=== PATIENT | male | born 1995 | race Two or more races ===

== ENCOUNTER 2022-04-08 05:54 | Emergency (ER) | payer MEDICAID, SELFPAY ==
--- NOTE | 2022-04-08 | ECG_ITS ---
Test Reason : bradycardia Blood Pressure : / mmHG Vent. Rate : 045 BPM Atrial Rate : 045 BPM P-R Int : 142 ms QRS Dur : 100 ms QT Int : 454 ms P-R-T Axes : 045 039 041 degrees QTc Int : 392 ms Sinus bradycardia Otherwise normal ECG When compared with ECG of 08-APR-2022 06:15, No significant change was found Referred By: Sarai Aguirre Electronically Signed By:EUGENIA SCHUMACHER MD
--- NOTE | ~2022-04-08 | XR_ITS ---
EXAMINATION: XR CHEST CLINICAL INFORMATION: Chest pain. COMPARISON: None TECHNIQUE: Frontal view of the chest was obtained. FINDINGS: No significant abnormality is noted involving the heart, lungs, mediastinum, bony thorax or soft tissues. XR/XR chest 1V IMPRESSION: No acute cardiopulmonary process.
--- NOTE | ~2022-04-08 | CT_ITS ---
EXAMINATION: CT ANGIOGRAM OF THE CHEST WITH AND WITHOUT CONTRAST (CT PULMONARY ANGIOGRAM FOR PE) CLINICAL INFORMATION: Reason for Exam ?pe COMPARISON: None TECHNIQUE: Prior to contrast administration, noncontrast localization images were obtained. Subsequently, multidetector volumetric imaging was performed from the thoracic inlet to below the diaphragms following the administration of 80 mL Omnipaque 350 intravenous contrast. No contrast reaction reported Sagittal, coronal, and MIP oblique sagittal reformatted images were obtained on the CT workstation, uploaded to PACS, and reviewed. This CT examination was performed using dose optimization techniques as appropriate, variously including the following: *Automated exposure control *Adjustment of mA and/or kV according to patient size (this includes techniques or standardized protocols for targeted exams where dose is matched to indication/reason for exam; i.e. extremities or head) *Use of iterative reconstruction technique Total exam dose-length product 509 mGy-cm FINDINGS: QUALITY OF STUDY/CONTRAST BOLUS: Satisfactory. PULMONARY ARTERIES: No central or segmental pulmonary emboli. THORACIC AORTA: No aneurysm or dissection. LUNG: No focal consolidation, nodules or masses. PLEURA: No pleural effusion or pneumothorax. MEDIASTINUM: Normal heart size. No pericardial effusion. No hilar or mediastinal lymphadenopathy. No evidence of septal bowing or right heart strain. No coronary artery calcification observed. CHEST WALL/AXILLA: No axillary or internal mammary lymphadenopathy. OSSEOUS STRUCTURES: No acute or suspicious osseous abnormality. UPPER ABDOMEN: Unremarkable. No reflux of contrast into the hepatic veins to suggest elevated right heart pressures. CT/CT angio chest PE protocol IMPRESSION: 1. Unremarkable exam. No evidence for acute PE VTE: negative
--- NOTE | ~2022-04-08 | CT_ITS ---
EXAMINATION: CT ABDOMEN AND PELVIS WITH CONTRAST CLINICAL INFORMATION: Right upper quadrant pain COMPARISON: None TECHNIQUE: Multidetector volumetric images were obtained from the superior aspect of the liver through the pubic symphysis following administration 85 mL of Omnipaque 350 intravenous contrast. Sagittal and coronal reformatted images were obtained on the technologist's workstation. Oral contrast: No This CT examination was performed using dose optimization techniques as appropriate, variously including the following: *Automated exposure control *Adjustment of mA and/or kV according to patient size (this includes techniques or standardized protocols for targeted exams where dose is matched to indication/reason for exam; i.e. extremities or head) *Use of iterative reconstruction technique DLP: 1607 mGy-cm FINDINGS: LUNG BASES: Minimal atelectatic changes seen left lung base. Heart size is normal. LIVER, GALLBLADDER, AND BILIARY TREE: The liver is normal in size, shape, and attenuation. No focal hepatic lesion or biliary ductal dilatation is present. The gallbladder is unremarkable with no evidence of radiopaque gallstones, gallbladder wall thickening, or obvious pericholecystic inflammatory changes. PANCREAS: And air or free SPLEEN: Unremarkable. ADRENAL GLANDS: Unremarkable. KIDNEYS AND URETERS: The kidneys are normal in size, shape, and attenuation. No hydronephrosis, hydroureter, or calculi seen. No perinephric stranding. BLADDER: Unremarkable. GASTROINTESTINAL TRACT: There is scattered stool, diverticuli and gas seen in the colon without significant distention. The small bowel loops are normal caliber. Appendix is normal caliber. There is scattered mesenteric lymph nodes. ABDOMINAL WALL: No significant hernia is appreciated. LYMPH NODES: Normal. VASCULAR: Unremarkable. PELVIC VISCERA: The prostate gland is normal size. No free fluid or free air seen. OSSEOUS STRUCTURES: No aggressive lytic or sclerotic process CT/CT abdomen pelvis w IV con IMPRESSION: No acute intra-abdominal process seen. Scattered colonic diverticulosis without diverticulitis. Mild constipation. Fleischner guidelines were followed.
[2022-04-08 06:02] VITALS: BP 124/70; BP 137/79; PULSE 68; PULSE 70; RESP 16; TEMP 36.7; O2SAT 99; BMI 36.9
--- NOTE | 2022-04-08 07:34 | ECG_ITS ---
Test Reason : ABD PAIN Blood Pressure : / mmHG Vent. Rate : 056 BPM Atrial Rate : 056 BPM P-R Int : 124 ms QRS Dur : 092 ms QT Int : 416 ms P-R-T Axes : 019 028 018 degrees QTc Int : 401 ms Sinus bradycardia Otherwise normal ECG When compared with ECG of 28-SEP-2007 09:15, Heart rate has decreased Referred By: Sarai Aguirre Electronically Signed By:EUGENIA SCHUMACHER MD
--- NOTE | 2022-04-08 07:58 | ED.ABDPAIN ---
HPI - Abdominal Pain General Chief Complaint: Abdominal Pain Stated Complaint: right lower abd pain Time Seen by Provider: 04/08/22 06:43 History of Present Illness HPI narrative: Patient is a 26-year-old male presents today with having right upper quadrant pain has been ongoing for years. Patient claims it started again last night. The pain is sharp. It is over the right upper quadrant. It is worse with deep breath. Patient is from home. No diaphoresis. No history of diabetes, hypertension, high cholesterol, smoking, [place]. No history of blood clots in the past. No family history of blood clot no long distance traveling. No leg swelling. Related Data Allergies Allergy/AdvReac Type Severity Reaction Status Date / Time amoxicillin [AMOXICILLIN] Allergy Mild RASH Unverified 02/10/20 16:13 Review of Systems Review of Systems Positive right upper quadrant lower abdomen/chest pain No nausea no vomiting No diaphoresis Yes all other systems are reviewed and are negative PMFSH Past Medical History Attestation statement: The following information was validated with the patient. Social History Social History Smoked in Last 30 Days: Yes Use of substances other than those prescribed or required for medical reasons: Yes Substance Use Type: Marijuana Advance Directives: No Physical Exam ED Vital Signs: Vital Signs - 24 hr 04/08/22 06:02 04/08/22 08:23 04/08/22 09:11 Temperature 98.1 F 97.6 F Pulse Rate 70 50 45 L Respiratory Rate 16 16 16 Blood Pressure 137/79 119/57 L 105/51 L Pulse Oximetry 99 100 Oxygen Delivery Method Room Air Room Air Room Air BMI result Body Mass Index 36.9 Appearance: Alert. Oriented X3. No acute distress. Eyes: Pupils equal, round and reactive to light. ENT: Pharynx normal. Neck: Normal inspection. Neck supple. No lymph nodes noted. No crepitus CVS: Normal heart rate and rhythm. Pulses normal. Normal S1 and S2 Respiratory: No respiratory distress. Breath sounds normal. No Wheezing. No rales Abdomen: Positive right upper quadrant pain. No rebound or guarding. No rigidity. No distention. good BS x4 Skin: Skin warm and dry. Normal skin color. Normal skin turgor. Extremities: No lower extremity edema. Neurovascular intact to all extremities. No Lacerations. No Rash Neuro: Oriented X 3. No motor deficit. No sensory deficit. Moving all extermities. No slurred speech Medications Administered Discontinued Medications Generic Name Dose Route Start Last Admin Trade Name Susan PRN Reason Stop Dose Admin Al Hydroxide/Mg Hydroxide 30 ml 04/08/22 07:57 04/08/22 09:15 Magnesium Hydrox/Alum Hydrox 30 Ml Oral.Susp PO 04/08/22 07:58 30 ml ONCE ONE Administration Belladonna Alkaloids/Phenobarbital 10 ml 04/08/22 07:57 04/08/22 09:15 Phenobarb/Hyoscy/Atropine/Scop 10 Ml Elixir PO 04/08/22 07:58 10 ml ONCE ONE Administration Sodium Chloride 1,000 mls @ 999 mls/hr 04/08/22 08:00 04/08/22 10:40 Ns IV 04/08/22 09:00 Infused .Q1H1M WINNIE Infusion Iohexol 100 ml 04/08/22 10:40 04/08/22 10:40 Iohexol 350 Mg/Ml 100 Ml Infus..Btl IV 04/08/22 10:41 100 ml ONCE ONE Administration Lidocaine HCl 15 ml 04/08/22 07:57 04/08/22 09:16 Lidocaine Hcl Viscous 2 % 15 Ml Solution MUCOUS MEM 04/08/22 07:58 15 ml ONCE ONE Administration MDM - Abdominal Pain MDM Narrative Medical decision making narrative: CTA of the chest was grossly negative for any acute evidence of pulmonary emboli. A CTA was ordered as patient had a slightly elevated D-dimer. CT of the abdomen pelvis was negative for obstruction, abscess, perforation. His LFTs are normal. His EKG showed a sinus pattern heart rate is 45 TX QRS QT within normal limits is no acute ST segment elevation given patient's age poly physiologic. No distress. Will discharge patient home. Differential Diagnosis Differential diagnosis: Likely abdominal pain Medical Records Attestation: I reviewed the patient's medical records. Lab Data Attestation: I reviewed the patient's lab results. Result diagrams: 04/08/22 09:01 04/08/22 09:01 Labs: Lab Results 04/08/22 04/08/22 04/08/22 Range/Units 09:01 09:01 09:01 WBC 10.2 (4.8-10.8) X10*3/uL RBC 4.87 (4.60-5.80) X10*6/uL Hgb 14.1 (14.0-18.0) g/dl Hct 43.0 (42.0-52.0) % MCV 88.3 (80.0-98.0) fL MCH 29.0 (27.0-33.0) pg MCHC 32.8 (31.0-36.0) g/dl RDW 13.0 (11.0-16.0) % Plt Count 299 (160-400) X10*3/uL MPV 9.5 (9.4-12.4) fL Immature Gran % (Auto) 0.3 (0.0-0.4) % Neut % (Auto) 54.3 (45-73) % Lymph % (Auto) 33.0 (20-40) % Atkinson % (Auto) 7.2 (2-11) % Eos % (Auto) 4.7 H (0-4) % Baso % (Auto) 0.5 (0-2) % Lymph # (Auto) 3.4 (1.2-4.9) X10*3/uL Atkinson # (Auto) 0.7 (0.1-1.2) X10*3/uL Eos # (Auto) 0.5 H (0.0-0.4) X10*3/uL Baso # (Auto) 0.1 (0.0-0.2) X10*3/uL Abs Immat Gran (auto) 0.03 (0.00-0.03) X10*3/uL Absolute Neuts (auto) 5.5 (2.0-8.3) x10*3/uL Absolute Nucleated RBC 0.000 (0.0-0.012) X10*3/uL Nucleated RBC % (auto) 0.0 (0.0-0.2) /100WBC D-Dimer High Sensitivty 433 NG/ML Sodium 142 (135-145) mmol/L Potassium 4.3 (3.3-5.1) mmol/L Chloride 105 (96-108) mmol/L Carbon Dioxide 26 (22-29) mmol/L Anion Gap 15 (12-20) BUN 11 (9-16) mg/dL Creatinine 0.74 (0.5-1.4) mg/dL Estim Creat Clear Calc 184.5 Estimated GFR > 60 Random Glucose 93 (60-115) mg/dL Calcium 9.7 (8.4-10.2) mg/dL Total Bilirubin 0.3 (0.0-1.0) mg/dL Direct Bilirubin < 0.2 (0.0-0.5) mg/dL AST 13 (5-37) U/L ALT 17 (0-40) U/L Alkaline Phosphatase 52 (39-117) U/L Troponin I High Sens (<3.5-35.0) ng/L Total Protein 7.0 (6.5-8.0) g/dL Albumin 4.4 (3.5-5.0) g/dL Lipase 19 (8-78) U/L 04/08/22 Range/Units 09:01 WBC (4.8-10.8) X10*3/uL RBC (4.60-5.80) X10*6/uL Hgb (14.0-18.0) g/dl Hct (42.0-52.0) % MCV (80.0-98.0) fL MCH (27.0-33.0) pg MCHC (31.0-36.0) g/dl RDW (11.0-16.0) % Plt Count (160-400) X10*3/uL MPV (9.4-12.4) fL Immature Gran % (Auto) (0.0-0.4) % Neut % (Auto) (45-73) % Lymph % (Auto) (20-40) % Atkinson % (Auto) (2-11) % Eos % (Auto) (0-4) % Baso % (Auto) (0-2) % Lymph # (Auto) (1.2-4.9) X10*3/uL Atkinson # (Auto) (0.1-1.2) X10*3/uL Eos # (Auto) (0.0-0.4) X10*3/uL Baso # (Auto) (0.0-0.2) X10*3/uL Abs Immat Gran (auto) (0.00-0.03) X10*3/uL Absolute Neuts (auto) (2.0-8.3) x10*3/uL Absolute Nucleated RBC (0.0-0.012) X10*3/uL Nucleated RBC % (auto) (0.0-0.2) /100WBC D-Dimer High Sensitivty NG/ML Sodium (135-145) mmol/L Potassium (3.3-5.1) mmol/L Chloride (96-108) mmol/L Carbon Dioxide (22-29) mmol/L Anion Gap (12-20) BUN (9-16) mg/dL Creatinine (0.5-1.4) mg/dL Estim Creat Clear Calc Estimated GFR Random Glucose (60-115) mg/dL Calcium (8.4-10.2) mg/dL Total Bilirubin (0.0-1.0) mg/dL Direct Bilirubin (0.0-0.5) mg/dL AST (5-37) U/L ALT (0-40) U/L Alkaline Phosphatase (39-117) U/L Troponin I High Sens < 3.5 (<3.5-35.0) ng/L Total Protein (6.5-8.0) g/dL Albumin (3.5-5.0) g/dL Lipase (8-78) U/L Discharge Plan Discharge Clinical Impression: Abdominal pain Patient Disposition: Home, Self-Care Instructions: Abdominal Pain (ED) Referrals: Physician,None [Primary Care Provider] -
[2022-04-08 08:23] VITALS: BP 119/57; PULSE 50; RESP 16; TEMP 36.4; O2SAT 100
[2022-04-08] MEDS: 0.9 % Sodium Chloride 1,000 ML 999 ML IV (09:03)
[2022-04-08 09:07] LABS: MANUAL DIFF FLAG NO
[2022-04-08 09:08] LABS: Basophils Absolute Auto 0.1 X10*3/uL (0.0-0.2); Basophils Percent Auto 0.5 % (0-2); Eosinophils Absolute Auto 0.5 X10*3/uL (0.0-0.4); Eosinophils Percent Auto 4.7 % (0-4); Hemoglobin 14.1 g/dl (14.0-18.0); Imm Gran Abs Auto 0.03 X10*3/uL (0.00-0.03); Imm Gran Pct Auto 0.3 % (0.0-0.4); Lymphocytes Absolute Auto 3.4 X10*3/uL (1.2-4.9); Mean Corpuscular HGB Conc 32.8 g/dl (31.0-36.0); Mean Corpuscular Volume 88.3 fL (80.0-98.0); Mean Platelet Volume 9.5 fL (9.4-12.4); Monocytes Absolute Auto 0.7 X10*3/uL (0.1-1.2); Monocytes Percent Auto 7.2 % (2-11); Neutrophils Absolute Auto 5.5 x10*3/uL (2.0-8.3); Neutrophils Percent Auto 54.3 % (45-73); Platelet Count 299 X10*3/uL (160-400); Red Blood Count 4.87 X10*6/uL (4.60-5.80); White Blood Count 10.2 X10*3/uL (4.8-10.8)
[2022-04-08 09:11] VITALS: BP 105/51; PULSE 45; RESP 16
[2022-04-08 09:15] LABS: D Dimer High Sensitivity 433 NG/ML
[2022-04-08] MEDS: Magnesium Hydrox/Alum Hydrox 30 ML ORAL.SUSP PO (09:15)
[2022-04-08] MEDS: PHENobarb/Hyoscy/Atropine/Scop 10 ML ELIXIR PO (09:15)
[2022-04-08] MEDS: Lidocaine HCl Viscous 2 % 15 ML SOLUTION MUCOUS MEM (09:16)
--- NOTE | 2022-04-08 09:16 | PC.NURSE ---
pt alert and oriented x3. a bit confused about time. pt very anxious, has a history of anxiety, does not take any meds. HR 45/55. EKG done. does not have a history of heart condition. adb pain 12/02 game him GI meds. BP 105/51. NS running.
[2022-04-08 09:28] LABS: Alanine Aminotransferase 17 U/L (0-40); Albumin Level 4.4 g/dL (3.5-5.0); Alkaline Phosphatase 52 U/L (39-117); Anion Gap 15 (12-20); Aspartate Amino Transferase 13 U/L (5-37); Bilirubin Direct < 0.2 mg/dL (0.0-0.5); Bilirubin Total 0.3 mg/dL (0.0-1.0); Blood Urea Nitrogen 11 mg/dL (9-16); Calcium 9.7 mg/dL (8.4-10.2); Carbon Dioxide 26 mmol/L (22-29); Chloride 105 mmol/L (96-108); Creatinine Clr Calc Pharmacy 184.5; Estimated Glomerular Filt Rate > 60; Glucose Random 93 mg/dL (60-115); Lipase 19 U/L (8-78); Potassium 4.3 mmol/L (3.3-5.1); Sodium 142 mmol/L (135-145)
[2022-04-08 09:30] LABS: Troponin-I High Sensitivity < 3.5 ng/L (<3.5-35.0)
--- NOTE | 2022-04-08 09:38 | PC.NURSE ---
Pt noted to have brief moment of bradycardia at 28, Dr Aguirre aware. Pt declines feeling SOB, weak or dizzy states intermittent sx but unable to give history for length of time. Repeat EKG obtained. Pt is anxious but redirectable.
[2022-04-08] MEDS: iohexoL 350 MG/ML 100 ML INFUS..BTL IV (10:40)
== END 2022-04-08 12:56 | disposition home or self-care (01) ==
PROVIDERS: Emergency Provider Emergency Medicine Emergency Medical Services
DX: R10.31 Right lower quadrant pain (principal); F12.90 Cannabis use, unspecified, uncomplicated
CPT/HCPCS: 36415; 71045; 71275; 74177; 80048; 80076; 83690; 84484; 85025; 85379; 93005; 96360; 96361; 99284; 99285; Q9967

== ENCOUNTER 2022-09-03 03:27 | Emergency (ER) | payer MEDICAID, SELFPAY ==
--- NOTE | 2022-09-03 03:30 | ED.ABDPAIN ---
HPI - Abdominal Pain General Chief Complaint: Abdominal Pain Stated Complaint: Left Abd Pain with N/V Time Seen by Provider: 09/03/22 03:30 Source: patient Mode of arrival: EMS Limitations: no limitations History of Present Illness HPI narrative: Patient history of recurrent abdominal pain, cannabis abuse comes here for similar pain for about 2 hours prior to arrival vomited 2 times pain is diffuse no diarrhea no fever no chills no history of alcohol use Related Data Previous Rx's Medication Instructions Recorded lorazepam 1 mg tablet (Ativan) 1 mg PO BID PRN anxiety #7 tabs 09/03/22 ondansetron 4 mg disintegrating 4 mg PO Q6-8H PRN nausea and 09/03/22 tablet vomiting #7 tabs Allergies Allergy/AdvReac Type Severity Reaction Status Date / Time amoxicillin [AMOXICILLIN] Allergy Mild RASH Verified 09/03/22 03:47 Review of Systems Review of Systems Yes all other systems are reviewed and are negative PMFSH Social History Social History Alcohol intake: never Smoked in Last 30 Days: Yes Use of substances other than those prescribed or required for medical reasons: Yes Substance Use Type: Marijuana Substance Use Frequency: Daily Advance Directives: No Advance Directives Information Provided: Yes Physical Exam ED Vital Signs: Vital Signs - 24 hr 09/03/22 03:33 Temperature 97.9 F Pulse Rate 54 Respiratory Rate 18 Blood Pressure 101/50 L Pulse Oximetry 100 Oxygen Delivery Method Room Air BMI result Body Mass Index 31.0 Appearance: Alert. Oriented X3. No acute distress. Anxious Eyes: PERRLA, No Nystagmus ENT: Pharynx normal. Oral Mucosa moist Neck: Normal inspection. Neck supple. CVS: Normal heart rate and rhythm. Pulses normal. Respiratory: No respiratory distress. Equal air entry bilateral, no wheezing/rales/rhonchi Abdomen: Soft mild diffuse tenderness no rebound or guard Bowel sounds are present, no mass palpable, no CVA tenderness Skin: Skin warm and dry. Normal skin color. Normal skin turgor. Extremities: No lower extremity edema. No calf tenderness Neuro: Oriented X 3. No motor deficit. Medical Decision Making Medical Decision Making [facility] Narrative: 6 am Patient feeling much better now taking p.o. fluids denies any significant abdominal pain will discharge patient advise not to smoke cannabis Lab Data [facility] Lab Attestation statement: I reviewed the patient's lab results. 09/03/22 03:53 09/03/22 03:53 Labs: Lab Results 09/03/22 09/03/22 Range/Units 03:53 03:53 WBC 13.1 H (4.8-10.8) X10*3/uL RBC 4.83 (4.60-5.80) X10*6/uL Hgb 13.9 L (14.0-18.0) g/dl Hct 41.7 L (42.0-52.0) % MCV 86.3 (80.0-98.0) fL MCH 28.8 (27.0-33.0) pg MCHC 33.3 (31.0-36.0) g/dl RDW 12.5 (11.0-16.0) % Plt Count 284 (160-400) X10*3/uL MPV 9.6 (9.4-12.4) fL Immature Gran % (Auto) 0.3 (0.0-0.4) % Neut % (Auto) 76.2 H (45-73) % Lymph % (Auto) 15.8 L (20-40) % King % (Auto) 4.7 (2-11) % Eos % (Auto) 2.7 (0-4) % Baso % (Auto) 0.3 (0-2) % Lymph # (Auto) 2.1 (1.2-4.9) X10*3/uL King # (Auto) 0.6 (0.1-1.2) X10*3/uL Eos # (Auto) 0.4 (0.0-0.4) X10*3/uL Baso # (Auto) 0.0 (0.0-0.2) X10*3/uL Abs Immat Gran (auto) 0.04 H (0.00-0.03) X10*3/uL Absolute Neuts (auto) 10.0 H (2.0-8.3) x10*3/uL Absolute Nucleated RBC 0.000 (0.0-0.012) X10*3/uL Nucleated RBC % (auto) 0.0 (0.0-0.2) /100WBC Sodium 142 (135-145) mmol/L Potassium 4.8 (3.3-5.1) mmol/L Chloride 107 (96-108) mmol/L Carbon Dioxide 26 (22-29) mmol/L Anion Gap 14 (12-20) BUN 21 H (9-16) mg/dL Creatinine 0.86 (0.5-1.4) mg/dL Estim Creat Clear Calc 144.3 Estimated GFR > 60 Random Glucose 117 H (60-115) mg/dL Calcium 9.4 (8.4-10.2) mg/dL Total Bilirubin 0.8 (0.0-1.0) mg/dL AST 43 H (5-37) U/L ALT 33 (0-40) U/L Alkaline Phosphatase 64 (39-117) U/L Total Protein 7.0 (6.5-8.0) g/dL Albumin 4.2 (3.5-5.0) g/dL Lipase 16 (8-78) U/L Medications Administered Discontinued Medications Generic Name Dose Route Start Last Admin Trade Name Freq PRN Reason Stop Dose Admin Sodium Chloride 1,000 mls @ 999 mls/hr 09/03/22 03:36 09/03/22 05:00 Ns IV 09/03/22 04:36 Infused .Q1H1M ONE Infusion Lorazepam 1 mg 09/03/22 03:36 09/03/22 04:02 Lorazepam 2 Mg/Ml Vial IVPUSH 09/03/22 03:37 1 mg ONCE ONE Administration Prochlorperazine Edisylate 10 mg 09/03/22 03:36 09/03/22 04:01 Prochlorperazine Edisylate 10 Mg/2 Ml Vial IVPUSH 09/03/22 03:37 10 mg ONCE ONE Administration Discharge Plan Discharge Clinical Impression: Cyclic vomiting syndrome, Cannabis abuse with cannabis-induced anxiety disorder Patient Disposition: Home, Self-Care Additional Instructions: Drink plenty of fluids avoid cannabis abuse Ativan for severe anxiety Prescriptions: New ondansetron 4 mg tablet,disintegrating 4 mg PO Q6-8H PRN (Reason: nausea and vomiting) Qty: 7 0RF lorazepam [Ativan] 1 mg tablet 1 mg PO BID PRN (Reason: anxiety) Qty: 7 0RF Interventions: ED Discharge Assessment Last Done: 09/03/22 06:15 Discharge Date/Time: 09/03/22 06:20
[2022-09-03 03:33] VITALS: BP 101/50; BP 104/70; PULSE 54; PULSE 62; RESP 18; TEMP 36.6; O2SAT 100; O2SAT 96; BMI 31.0
[2022-09-03] MEDS: 0.9 % Sodium Chloride 1,000 ML 999 ML IV (03:56)
[2022-09-03 03:57] LABS: MANUAL DIFF FLAG NO
[2022-09-03 03:58] LABS: Basophils Percent Auto 0.3 % (0-2); Eosinophils Absolute Auto 0.4 X10*3/uL (0.0-0.4); Eosinophils Percent Auto 2.7 % (0-4); Hematocrit 41.7 % (42.0-52.0); Hemoglobin 13.9 g/dl (14.0-18.0); Imm Gran Abs Auto 0.04 X10*3/uL (0.00-0.03); Imm Gran Pct Auto 0.3 % (0.0-0.4); Lymphocytes Absolute Auto 2.1 X10*3/uL (1.2-4.9); Lymphocytes Percent Auto 15.8 % (20-40); Mean Corpuscular HGB Conc 33.3 g/dl (31.0-36.0); Mean Corpuscular Hemoglobin 28.8 pg (27.0-33.0); Mean Corpuscular Volume 86.3 fL (80.0-98.0); Mean Platelet Volume 9.6 fL (9.4-12.4); Monocytes Absolute Auto 0.6 X10*3/uL (0.1-1.2); Monocytes Percent Auto 4.7 % (2-11); Neutrophils Percent Auto 76.2 % (45-73); Platelet Count 284 X10*3/uL (160-400); Red Blood Count 4.83 X10*6/uL (4.60-5.80); Red Cell Distribution Width 12.5 % (11.0-16.0); White Blood Count 13.1 X10*3/uL (4.8-10.8)
--- NOTE | 2022-09-03 04:00 | PC.NURSE ---
Pt A&Ox4, reports 03/04 intermittent RLQ ABD pain since 11pm last night worsening with movement. Reports N/V. RLQ tender to touch, + bowel sounds x4 quadrants, reports last BM was yesterday, denies diarrhea. IV line established and blood work was collected and sent to lab. Meds given as documented.
[2022-09-03] MEDS: Prochlorperazine Edisylate 10 MG/2 ML VIAL IVPUSH (04:01)
[2022-09-03] MEDS: LORazepam 2 MG/ML VIAL 1 MG IVPUSH (04:02)
[2022-09-03 04:19] LABS: Alanine Aminotransferase 33 U/L (0-40); Albumin Level 4.2 g/dL (3.5-5.0); Alkaline Phosphatase 64 U/L (39-117); Anion Gap 14 (12-20); Aspartate Amino Transferase 43 U/L (5-37); Bilirubin Total 0.8 mg/dL (0.0-1.0); Blood Urea Nitrogen 21 mg/dL (9-16); Calcium 9.4 mg/dL (8.4-10.2); Carbon Dioxide 26 mmol/L (22-29); Chloride 107 mmol/L (96-108); Creatinine Clr Calc Pharmacy 144.3; Estimated Glomerular Filt Rate > 60; Glucose Random 117 mg/dL (60-115); Lipase 16 U/L (8-78); Potassium 4.8 mmol/L (3.3-5.1); Sodium 142 mmol/L (135-145)
--- NOTE | 2022-09-03 06:14 | PC.NURSE ---
Pt denies any pain, Pt able to ambulate independently, D/C papers given and questions answered.
== END 2022-09-03 06:20 | disposition home or self-care (01) ==
PROVIDERS: Emergency Provider Internal Medicine
DX: F12.180 Cannabis abuse with cannabis-induced anxiety disorder (principal); R11.10 Vomiting, unspecified; R10.32 Left lower quadrant pain; Z79.899 Other long term (current) drug therapy
CPT/HCPCS: 36415; 80053; 83690; 85025; 96361; 96374; 96375; 99284; J2060